=== PATIENT | female | born 1965 | race Caucasian/White ===

== ENCOUNTER 2017-07-28 20:59 | Emergency (ER) | payer OTHER ==
[~2017-07-28] VITALS: Ht 165.1 cm; Wt 61.2 kg
[2017-07-28] MEDS ORDERED: SYEDA 28 TABLE1 EACH PO (21:26)
[2017-07-28] MEDS ORDERED: EYE DROPS15 M1 OP (21:26)
[2017-07-28] MEDS ORDERED: IBUPROFEN600 MG ORAL (22:38)
[2017-07-28 22:46] VITALS: BP 110/72
--- NOTE | 2017-07-29 04:01 | Emergency Room Report ---
History of Present Illness General Chief Complaint: Lower Extremity Injury Source: Patient Present Illness HPI 51-year-old female who presents ED complaining of right foot pain. States that work a metal table tipped over and fell on her right foot. Denies any other injuries. Notes bruising and pain to the right foot especially over the right big toe. Throbbing, 8/10, nonradiating. No other aggravating relieving factors. Denies any other associated symptoms Allergies: Coded Allergies: BELLADONNA ALKALOIDS (Verified Allergy, Unknown, 07/28/17) Patient History Past Medical History: none Past Surgical History: none Pertinent Family History: none Social History: Denies: smoking, alcohol use, drug use Last Menstrual Period: unk Now: No - on control Immunizations: UTD Reviewed Nursing Documentation: PMH: Agreed, PSxH: Agreed Nursing Documentation-PMH Past Medical History: No History, Except For Hx Cardiac Problems: No - glaucoma left eye Review of Systems All Other Systems: negative except mentioned in HPI Physical Exam Vital Signs Date Time Temp Pulse Resp B/P (MAP) Pulse Ox O2 Delivery O2 Flow Rate FiO2 07/28/17 21:19 98.4 75 16 117/77 98 Room Air Sp02 EP Interpretation: reviewed, normal General Appearance: no apparent distress, alert, GCS 15, non-toxic Head: normocephalic Eyes: bilateral eye normal inspection, bilateral eye PERRL ENT: normal ENT inspection Neck: normal inspection Respiratory: normal inspection Cardiovascular #1: normal inspection Gastrointestinal: normal inspection Rectal: deferred Genitourinary: no CVA tenderness Musculoskeletal: tender - R foot Neurologic: alert, oriented x3, responsive, motor strength/tone normal, sensory intact, speech normal Psychiatric: judgement/insight normal, memory normal, mood/affect normal, no suicidal/homicidal ideation Skin: other - bruising R big toe, R foot Lymphatic: normal inspection Medical Decision Making Diagnostic Impression: Primary Impression: Toe contusion Qualified Codes: S90.111A - Contusion of right great toe without damage to nail, initial encounter ER Course Hospital Course 51-year-old F presents to ED complaining of R foot pain/bruising s/p table falling Differential diagnoses include: Fracture, dislocation, sprain, contusion Clinical course Patient placed on stretcher. After initial history and physical, I ordered pain medications and Xrays of R foot Xrays prelim read shows no acute fracture/dislocation. We used acetone to remove the nail [place] and there was no evidence of subungual hematoma. reassurance given Diagnosis - toe contusion Stable and discharged to home with prescription for Motrin. apply ice, keep elevated. weight bear as tolerated. Followup with PMD. Return to ED if symptoms recur or worsen Other X-Ray Diagnostic Results Other X-Ray Diagnostic Results : X-Ray ordered: R foot # of Views/Limited Vs Complete: 3 View Indication: Pain EP Interpretation: Yes Interpretation: no dislocation, no soft tissue swelling, no fractures Impression: No acute disease Electronically Signed by: Electronically signed by Eliezer Dotson MD Last Vital Signs Date Time Temp Pulse Resp B/P (MAP) Pulse Ox O2 Delivery O2 Flow Rate FiO2 07/28/17 22:46 98.4 72 16 110/72 98 Room Air Status: improved Disposition: HOME, SELF-CARE Condition: Stable Scripts Ibuprofen* (MOTRIN*) 600 Mg Tablet 600 MG ORAL Q8H Y for For Pain, #30 TAB 0 Refills Prov: ELIEZER DOTSON M.D. 07/28/17 Referrals: NON PHYSICIAN (PCP) Patient Instructions: Foot Contusion ELIEZER DOTSON M.D. Jul 29, 2017 04:01
--- NOTE | 2017-07-29 09:29 | Diagnostic Imaging Report ---
Indication: PAIN Comparison: None. Findings: 3 views of the right foot shows no acute fractures or dislocations. Bony mineralization is normal. No bony destructive lesions are identified. Joint spaces are intact. There are no erosions. Soft tissues are unremarkable. Impression: No fracture or dislocation of the right foot.
== END 2017-07-28 22:55 | disposition home or self-care (01) ==
LOC: EMR 22:00
DX: S90.111A Contusion of right great toe without damage to nail, initial encounter (principal); W22.8XXA Striking against or struck by other objects, initial encounter; Y93.9 Activity, unspecified; Y99.9 Unspecified external cause status; Z88.8 Allergy status to other drugs, medicaments and biological substances
CPT/HCPCS: 99283